=== PATIENT | male | born 1985 | race American Indian/Alaskan Native ===

== ENCOUNTER 2018-07-21 05:54 | Day surgery (SDC) | payer OTHER ==
[2018-07-21] MEDS ORDERED: LACTATED RINGERS 1,000 ML IV SCH (06:00)
[2018-07-21] MEDS ORDERED: ZOFRAN IV PRN (07:22)
[2018-07-21] MEDS ORDERED: PERCOCET 5/325 PO PRN (07:22)
[2018-07-21] MEDS ORDERED: DILAUDID IV PRN (07:22)
[2018-07-21] MEDS ORDERED: DIPRIVAN 10 MG/ML IV ONE (07:34)
[2018-07-21] MEDS ORDERED: XYLOCAINE CARDIAC IV ONE (07:34)
[2018-07-21] MEDS ORDERED: SUBLIMAZE ONE (07:36)
--- NOTE | 2018-07-21 08:17 | Anesthesia Day of Surgery ---
Anesthesia Day of Surgery - Day of Surgery Patient Examined: Yes Patient H&P Reviewed: Yes Patient is NPO: Yes Beta Blockers: No Apolinar's Test: N/A
--- NOTE | 2018-07-21 08:19 | Anesthesia Consultation ---
Anesthesia Consult and Med Hx Date of service: 07/21/18 - Airway Anesthetic Teeth Evaluation: Good (upper/lowr braces; full tierney - possible challenge for mask ventilation ) ROM Head & Neck: Adequate Mental/Hyoid Distance: Adequate Mallampati Class: Class I Intubation Access Assessment: Good - Pulmonary Exam CTA: Yes - Cardiac Exam Cardiac Exam: RRR - Pre-Operative Health Status ASA Pre-Surgery Classification: ASA1 Proposed Anesthetic Plan: General - Pulmonary Hx Smoking: No Hx Pneumonia: Yes (2018- RESOLVED) Hx Sleep Apnea: No ([place] PRE SCREEN HIGH RISK.) - Cardiovascular System Hx Hypertension: No - Central Nervous System Hx Back Pain: Yes (BACK PAIN FROM STONE) - Other Systems Hx Cancer: No - Additional Comments Anesthesia Medical History Comments: ASA 1 otherwise healthy, mild obesity.
[2018-07-21] MEDS ORDERED: ceFAZolin 2 GM in NACL 0.9% 100 ML IV ONE (08:30)
[2018-07-21] MEDS ORDERED: ZOFRAN ONE (08:48)
[2018-07-21] MEDS ORDERED: WATER FOR IRRIG STERILE IR ONE (08:55)
--- NOTE | 2018-07-21 09:44 | Short Stay Summary ---
Short Stay Documentation Date of service: 07/21/18 - History H&P: obtained from office - Allergies and Medications Current Medications: Allergies No Known Allergies Allergy (Verified 07/11/18 11:54) Home Medications Medication Instructions Recorded Confirmed Last Taken Type traMADol [Ultram] 50 mg PO Q4HR PRN 07/11/18 07/11/18 Unknown History Active Medications Hydromorphone HCl (Dilaudid) 0.25 mg IV Q10MIN PRN PRN Reason: Pain, Moderate (4-6) Stop: 07/21/18 20:00 Lactated Ringer's (Lactated Ringers) 1,000 mls @ 75 mls/hr IV DIRECT PRASANNA Stop: 07/21/18 23:59 Last Admin: 07/21/18 07:40 Dose: 75 mls/hr Documented by: Cefazolin Sodium 2 gm/ Sodium (Chloride) 100 mls @ 200 mls/hr IV ONCE ONE Stop: 07/21/18 08:59 Ondansetron HCl (Zofran) 4 mg IV ONCE PRN PRN Reason: Nausea And Vomiting Stop: 07/21/18 16:00 Oxycodone/Acetaminophen (Percocet 5/325) 1 tab PO ONCE PRN PRN Reason: Pain, Moderate (4-6) Stop: 07/21/18 16:00 - Brief post op/procedure progress note Date of procedure: 07/21/18 Pre-op diagnosis: right renal 7mm stone Post-op diagnosis: same Procedure: rt eswl cystosocos Anesthesia: GETA Findings: good vis frage 2500 / 7 cysto neg Surgeon: FRANCISCA ROMANO Estimated blood loss: minimal Pathology: none Condition: stable - Hospital course Hospital course: orpacuhome - Disposition Condition at discharge: Good Disposition: DC-01 TO HOME OR SELFCARE Short Stay Discharge Plan Activity: advance as tolerated Diet: advance as tolerated Follow up with: FRANCISCA ROMANO MD [Staff Physician] - 7 Days
[2018-07-21] MEDS ORDERED: ANCEF/STERILE WATER 2 GM/20 ML 2 GM/20 ML SYRINGE IV SCH (11:00)
[2018-07-21 11:02] VITALS: BP 125/75
--- NOTE | 2018-07-21 14:30 | Post Anesthesia Evaluation ---
- Post Anesthesia Evaluation Patient Participated: Yes Airway Patent: Yes Stable Respiratory Function: Yes Temp > 96.8F: Yes Pain Manageable: Yes Adequeate Hydration: Yes Anesthesia Complications: No
--- NOTE | 2018-08-05 09:49 | Operative Report ---
PREOPERATIVE DIAGNOSES: 1. Right renal 7 mm stone. 2. Hematuria. POSTOPERATIVE DIAGNOSES: 1. Right renal 7 mm stone. 2. Hematuria. PROCEDURE: Right renal ESWL and cystoscopy flexible. ANESTHESIA: General. FINDINGS: Good visualization and fragmentation, 100 shocks at maximum 7 kilovolts. Cystoscopy negative. SURGEON: Johan Gudino M.D. ESTIMATED BLOOD LOSS: Minimal. SPECIMENS: None. CONDITION: Stable. ____: PACU, home. CLINICAL INDICATIONS: Counseled RCBA, antibiotics, SCDs, desired to proceed. DESCRIPTION OF PROCEDURE: The patient was transferred to OR suite in supine position, anesthesia, supine position. Anesthesia begun, was prepped in standard fashion in the supine position. Flexible cystoscopy, flexible scope passed. Normal penile, bulbar prostatic urethra. Upon entering the bladder, cystoscopy of the entire bladder demonstrated no lesions, tumors, stones, no abnormalities. Scope was withdrawn. Bladder drained and began our lithotripsy. Biplanar fluoroscopy was used to target the stone with an F2 on the right side, there was good visualization. A total of 2500 shocks were delivered at a maximum of 7.0 kilovolts. Intermittent repositioning as necessary. At the end of the procedure, there was decreased density of the stone fragment. JOB# [id number] ATS/NTS
== END 2018-07-21 11:10 | disposition home or self-care (01) ==
LOC: OR 05:54
PROVIDERS: ATTEND Urology
DX: N20.0 Calculus of kidney (principal); G43.909 Migraine, unspecified, not intractable, without status migrainosus; N52.8 Other male erectile dysfunction; I10 Essential (primary) hypertension; J18.9 Pneumonia, unspecified organism; Z79.899 Other long term (current) drug therapy
CPT/HCPCS: 50590; 52000; A4217; J1170; J2001; J2405; J2704; J3010; J7120